=== PATIENT | female | born 1980 | race American Indian/Alaskan Native ===

== ENCOUNTER 2018-02-06 12:49 | Emergency (ER) | payer MEDICAID ==
[2018-02-06 13:01] VITALS: BP 132/69
--- NOTE | 2018-02-06 13:38 | Emergency Department Report ---
Chief Complaint: Nausea/Vomiting/Diarrhea Stated Complaint: VOMIT/CHEST PAINS/PAIN Time Seen by Provider: 02/06/18 13:24 - HPI History of Present Illness: 37-year-old Syrian female presents to the emergency department with complaint of nausea, vomiting, some vaginal bleeding/spotting and some constipation that apparently has turned now into looser stools. The patient is concerned that she could be as she has a history of a ectopic and miscarriage from about 7 years ago that she says started about the same way. She did have a menstrual cycle last month and this vaginal bleeding now but it is irregular. She says that she has had unprotected sex since her last miscarriage. She denies any vaginal discharge, fever, back pain. She has not taken anything for her symptoms. - ROS Review of Systems: Positive for nausea, vomiting, diarrhea, vaginal bleeding, mild rectal bleeding Negative for fever, vaginal discharge, dysuria, abdominal pain - Exam Vital Signs: Vital Signs 02/06/18 12:56 Temperature 98 F Pulse Rate 106 H Respiratory 16 Rate Blood Pressure 132/69 O2 Sat by Pulse 98 Oximetry Physical Exam: Patient does not appear to be in any acute distress. Heart and lung sounds are normal to auscultation. No tenderness to palpation of the abdomen. No guarding. MSE screening note: Focused history and physical exam performed. Due to findings the following was ordered: I have ordered a CBC, CMP, urinalysis and test. If negative for , the patient will have an abdominal x-ray ED Disposition for MSE Condition: Stable
[2018-02-06 14:06] LABS: Basophils # (Auto) 0.1 K/mm3 (0.0-0.1); Basophils % (Auto) 0.7 % (0.0-1.8); Eosinophils # (Auto) 0.1 K/mm3 (0.0-0.4); Eosinophils % (Auto) 1.3 % (0.0-4.3); Hematocrit 43.7 % (30.3-42.9); Hemoglobin 14.5 gm/dl (10.1-14.3); Lymphocytes # (Auto) 2.9 K/mm3 (1.2-5.4); Lymphocytes % (Auto) 29.1 % (13.4-35.0); Mean Corpuscular HGB Conc 33 % (30-34); Mean Corpuscular Hemoglobin 30 pg (28-32); Mean Corpuscular Volume 90 fl (79-97); Monocytes # (Auto) 0.7 K/mm3 (0.0-0.8); Monocytes % (Auto) 6.8 % (0.0-7.3); Platelet Count 191 K/mm3 (140-440); Red Blood Count 4.88 M/mm3 (3.65-5.03); Red Cell Distribution Width 13.5 % (13.2-15.2)
[2018-02-06 14:23] LABS: Bilirubin,Urine NEG (Negative); Blood,Urine LG (Negative); Color,Urine Yellow (Yellow); HCG Qualitative,Urine Negative (Negative); Mucus,Urine FEW /HPF; Urobilinogen,Urine < 2.0 mg/dL (<2.0)
[2018-02-06 14:24] LABS: WBC,Urine > 182.0 /HPF (0.0-6.0)
[2018-02-06 14:25] LABS: BUN/Creatinine Ratio 9; Blood Urea Nitrogen 7 mg/dL (7-17); Calcium 9.1 mg/dL (8.4-10.2)
[2018-02-06 14:26] LABS: Alanine Aminotransferase 22 units/L (7-56); Albumin 4.3 g/dL (3.9-5); Hemolysis Index 3
--- NOTE | 2018-02-06 14:37 | Emergency Department Report ---
ED Dysuria HPI - HPI Chief Complaint: Nausea/Vomiting/Diarrhea Stated Complaint: VOMIT/CHEST PAINS/PAIN Time Seen by Provider: 02/06/18 13:24 Duration: 3 Days Location of Discomfort: Other (CONCERNED SHE IS ) Symptoms: Dysuria: Yes, Frequency: No, Suprapubic Pain: No, Flank Pain: No, Fever: No, Hematuria: Yes (ON PERIOD), Abdominal Pain: No, Previous UTI's: Yes Other History: RECENT DIARRHEA ED Review of Systems ROS: Stated complaint: VOMIT/CHEST PAINS/PAIN Other details as noted in HPI Comment: All other systems reviewed and negative Constitutional: other (HTO FLASHES). denies: fever Eyes: denies: eye pain ENT: denies: ear pain Respiratory: no symptoms reported Cardiovascular: denies: chest pain Endocrine: no symptoms reported Gastrointestinal: nausea, diarrhea (YESTERDAY). denies: abdominal pain, vomiting Genitourinary: urgency, dysuria, frequency, hematuria (MENSES), other (EARLY MENOPAUSE). denies: discharge, abnormal menses, dyspareunia Musculoskeletal: denies: back pain Skin: denies: rash Neurological: denies: headache, weakness Psychiatric: denies: anxiety, depression Hematological/Lymphatic: denies: easy bleeding ED Past Medical Hx - Past Medical History Hx Arthritis: Yes (KNEES / BACK) Hx Seizures: Yes (no meds) Hx Psychiatric Treatment: Yes (PTSD) Additional medical history: Scoliosis, back pain, Vaginal delivery x 2 - Surgical History Past Surgical History?: No - Social History Smoking Status: Current Every Day Smoker Substance Use Type: Alcohol, Marijuana - Medications Home Medications: Home Medications Medication Instructions Recorded Confirmed Last Taken Type Nitrofurantoin Monohyd/M-Cryst 100 mg PO BID #10 capsule 02/06/18 Unknown Rx [Macrobid 100 mg Capsule] Dysuria Exam - Exam General: Vital signs noted. No distress. Alert and acting appropriately. Exam: Yes Moist Mucous Membranes, No CVA Tenderness, No Abdominal Tenderness, No Rigidity or Guarding Exam: HER 90 ON EXAM. ABD SNT. NO VAG DC OR ITCHING PER PT. NO LESIONS. NOT CONCERNED FOR STD. THOUGHT SHE WAS . Labs: Lab Results 02/06/18 02/06/18 02/06/18 Range/Units 13:52 13:52 13:52 WBC 9.9 (4.5-11.0) K/mm3 RBC 4.88 (3.65-5.03) M/mm3 Hgb 14.5 H (10.1-14.3) gm/dl Hct 43.7 H (30.3-42.9) % MCV 90 (79-97) fl MCH 30 (28-32) pg MCHC 33 (30-34) % RDW 13.5 (13.2-15.2) % Plt Count 191 (140-440) K/mm3 Lymph % (Auto) 29.1 (13.4-35.0) % Grimes % (Auto) 6.8 (0.0-7.3) % Eos % (Auto) 1.3 (0.0-4.3) % Baso % (Auto) 0.7 (0.0-1.8) % Lymph # 2.9 (1.2-5.4) K/mm3 Grimes # 0.7 (0.0-0.8) K/mm3 Eos # 0.1 (0.0-0.4) K/mm3 Baso # 0.1 (0.0-0.1) K/mm3 Seg Neutrophils % 62.1 (40.0-70.0) % Seg Neutrophils # 6.1 (1.8-7.7) K/mm3 Sodium 138 (137-145) mmol/L Potassium 3.8 (3.6-5.0) mmol/L Chloride 101.6 (98-107) mmol/L Carbon Dioxide 25 (22-30) mmol/L Anion Gap 15 mmol/L BUN 7 (7-17) mg/dL Creatinine 0.8 (0.7-1.2) mg/dL Estimated GFR > 60 ml/min BUN/Creatinine Ratio 9 % Glucose 101 H (65-100) mg/dL Calcium 9.1 (8.4-10.2) mg/dL Total Bilirubin 0.40 (0.1-1.2) mg/dL AST 21 (5-40) units/L ALT 22 (7-56) units/L Alkaline Phosphatase 78 (35-129) units/L Total Protein 7.7 (6.3-8.2) g/dL Albumin 4.3 (3.9-5) g/dL Albumin/Globulin Ratio 1.3 % HCG, Qual Negative (Negative) Urine Color (Yellow) Urine Turbidity (Clear) Urine pH (5.0-7.0) Ur Specific Thurmond (1.003-1.030) Urine Protein (Negative) mg/dL Urine Glucose (UA) (Negative) mg/dL Urine Ketones (Negative) mg/dL Urine Blood (Negative) Urine Nitrite (Negative) Urine Bilirubin (Negative) Urine Urobilinogen (<2.0) mg/dL Ur Leukocyte Esterase (Negative) Urine WBC (Auto) (0.0-6.0) /HPF Urine RBC (Auto) (0.0-6.0) /HPF U Epithel Cells (Auto) (0-13.0) /HPF Urine Mucus /HPF Urine HCG, Qual (Negative) 02/06/18 Range/Units 14:10 WBC (4.5-11.0) K/mm3 RBC (3.65-5.03) M/mm3 Hgb (10.1-14.3) gm/dl Hct (30.3-42.9) % MCV (79-97) fl MCH (28-32) pg MCHC (30-34) % RDW (13.2-15.2) % Plt Count (140-440) K/mm3 Lymph % (Auto) (13.4-35.0) % Grimes % (Auto) (0.0-7.3) % Eos % (Auto) (0.0-4.3) % Baso % (Auto) (0.0-1.8) % Lymph # (1.2-5.4) K/mm3 Grimes # (0.0-0.8) K/mm3 Eos # (0.0-0.4) K/mm3 Baso # (0.0-0.1) K/mm3 Seg Neutrophils % (40.0-70.0) % Seg Neutrophils # (1.8-7.7) K/mm3 Sodium (137-145) mmol/L Potassium (3.6-5.0) mmol/L Chloride (98-107) mmol/L Carbon Dioxide (22-30) mmol/L Anion Gap mmol/L BUN (7-17) mg/dL Creatinine (0.7-1.2) mg/dL Estimated GFR ml/min BUN/Creatinine Ratio % Glucose (65-100) mg/dL Calcium (8.4-10.2) mg/dL Total Bilirubin (0.1-1.2) mg/dL AST (5-40) units/L ALT (7-56) units/L Alkaline Phosphatase (35-129) units/L Total Protein (6.3-8.2) g/dL Albumin (3.9-5) g/dL Albumin/Globulin Ratio % HCG, Qual (Negative) Urine Color Yellow (Yellow) Urine Turbidity Slightly-cloudy (Clear) Urine pH 5.0 (5.0-7.0) Ur Specific Thurmond 1.021 (1.003-1.030) Urine Protein 30 mg/dl (Negative) mg/dL Urine Glucose (UA) Neg (Negative) mg/dL Urine Ketones Neg (Negative) mg/dL Urine Blood Lg (Negative) Urine Nitrite Neg (Negative) Urine Bilirubin Neg (Negative) Urine Urobilinogen < 2.0 (<2.0) mg/dL Ur Leukocyte Esterase Tr (Negative) Urine WBC (Auto) > 182.0 H (0.0-6.0) /HPF Urine RBC (Auto) 70.0 (0.0-6.0) /HPF U Epithel Cells (Auto) 2.0 (0-13.0) /HPF Urine Mucus Few /HPF Urine HCG, Qual Negative (Negative) ED Course Vital Signs 02/06/18 12:56 Temperature 98 F Pulse Rate 106 H Respiratory 16 Rate Blood Pressure 132/69 O2 Sat by Pulse 98 Oximetry - Reevaluation(s) Reevaluation #1: 02/06/18 14:42 HERE TO BE SURE NOT PREG REQUESTS URINE AND BLOOD PREVIOUS ECTOPIC PERIMENOPAUSAL NO VAG DC NOT CONCERNED FOR STI DIARRHEA YEST P EATING NOW W SOME DYSURIA ED Medical Decision Making - Lab Data Result diagrams: 02/06/18 13:52 02/06/18 13:52 - Medical Decision Making URINE AND BLOOD PREG NEG NO CONCERN STI ON MENSES - Differential Diagnosis RO PREG/ UTI/STI Critical care attestation.: If time is entered above; I have spent that time in minutes in the direct care of this critically ill patient, excluding procedure time. ED Disposition Clinical Impression: UTI (urinary tract infection) Disposition: DC-01 TO HOME OR SELFCARE Is pt being admited?: No Does the pt Need Aspirin: No Condition: Stable Instructions: Urinary Tract Infection in Women (ED) Additional Instructions: SAFE SEX HYDRATE WELL MED INSTRUCTED TODAY Prescriptions: Nitrofurantoin Monohyd/M-Cryst [Macrobid 100 mg Capsule] 100 mg PO BID #10 capsule Referrals: PRIMARY CAREMD [Primary Care Provider] - 3-5 Days AMRIT BRENNAN MD [Staff Physician] - 3-5 Days Time of Disposition: 14:37
== END 2018-02-06 15:08 | disposition home or self-care (01) ==
LOC: ED 12:49
DX: N39.0 Urinary tract infection, site not specified (principal); M19.90 Unspecified osteoarthritis, unspecified site; F17.200 Nicotine dependence, unspecified, uncomplicated; F12.90 Cannabis use, unspecified, uncomplicated
CPT/HCPCS: 36415; 80053; 81001; 81025; 84703; 85025; 99283